=== PATIENT | female | born 1985 | race Caucasian/White ===

== ENCOUNTER 2016-10-20 20:06 | Emergency (ER) | payer OTHER ==
[2016-10-20 20:19] VITALS: BP 146/79
[2016-10-20] MEDS ORDERED: ULTRAM PO ONE (20:53)
--- NOTE | 2016-10-20 20:56 | PROVIDER DOCUMENTATION ---
HPI-Musculoskeletal Pain/Inj - GENERAL Chief Complaint: Extremity Injury Stated Complaint: TWISTED ANKLE Time Seen by Provider: 10/20/16 20:43 Source: patient - HX OF PRESENT ILLNESS-MUSKULOSKELTAL Nature of Presenting Problem: This pt presents today c complaints of L ankle pain after rolling her ankle on a rock earlier today. Reports lateral swelling and pain. No loss of motor function or sensation. Quality of Pain: reports: aching Severity in ED: moderate Onset/Duration: 4-6 hours ago Timing: still present Modifying Factors: improves with: movement, palpation Any recent injury?: Yes Similar Symptoms Previously?: No Recently seen or treated by another doctor?: No Review of Systems - Adult - REVIEW OF SYSTEMS - ADULT Constitutional: reports: no symptoms reported. denies: chills, fatique Eyes: reports: no symptoms reported. denies: discharge, dry eyes Ears, Nose, Mouth & Throat: reports: no symptoms reported. denies: ear discharge, ear pain Cardiovascular: reports: no symptoms reported. denies: chest pain, edema Respiratory: reports: no symptoms reported. denies: chronic cough, dyspnea on exertion Gastrointestinal: reports: no symptoms reported. denies: abdominal pain, hematemesis Genitourinary: reports: no symptoms reported. denies: dysuria, discharge Musculoskeletal: reports: joint pain, joint swelling. denies: bone pain, back pain Integumentary: reports: no symptoms reported. denies: hives, hair loss Neurological: reports: no symptoms reported. denies: ataxia, dizziness/vertigo Psychiatric: reports: no symptoms reported. denies: anxiety, anti-depressant use Endocrine: reports: no symptoms reported Hematologic/Lymphatic: reports: no symptoms reported Allergic/Immunologic: reports: no symptoms reported All Other Systems: Reviewed and Negative Past History - Adult - PAST MEDICAL HISTORY-ADULT Review of Records: reports: Old Records Reviewed, Nursing Assessment Review, Medications Reviewed, Social history reviewed & non-contributory. Major Childhood Illnesses: reports: denies history Cardiovascular: reports: denies history Respiratory: reports: denies history Gastrointestinal: reports: denies history Obstetrical/Gynecological: reports: denies history Genitourinary: reports: denies history Musculoskeletal: reports: denies history Neurological: reports: denies history Endocrine/Immune: reports: denies history Other Conditions: reports: denies history Physical Exam-Injury Related - Physical Exam-Injury Related Initial Vital Signs Reviewed: Yes General Appearance: appears well, alert, no apparent distress Eyes: PERRL/EOMI, pink conjunctivae Head, Ears, Nose, Mouth & Throat: normocephalic/atraumatic, moist mucous membranes, normal ENT inspection Neck: non-tender, full range of motion, supple, normal inspection Respiratory: chest non-tender, lungs clear, normal breath sounds, no pleuratic chest pain, no respiratory distress, no accessory muscle use Cardiovascular: normal peripheral pulses, regular rate, rhythm Peripheral Pulses: dorsalis-pedis (R): 2+, dorsalis-pedis (L): 2+ Abdominal Exam: normal bowel sounds, non tender, soft Back Exam: normal inspection, no CVA tenderness, no vertebral tenderness Extremity: normal range of motion, swelling, tenderness. negative: deformity, erythema, pulse deficit, pedal edema Integumentary: normal color, warm/dry, blanching Neurologic: grossly normal, no motor/sensory deficits. negative: facial droop, focal weakness, motor weakness, sensory deficit Progress - PLAN OF CARE/RESULTS Progress/Plan/Lab Results: Orders Category Date Time Status Santana Wrap Application DIRECTED Care 10/20/16 20:53 Active Crutches DIRECTED Care 10/20/16 20:53 Active ANKLE COMPLETE LEFT [RAD] Stat Exams 10/20/16 20:19 Ordered Tramadol [Ultram] Med 10/20/16 20:53 Discontinued 50 mg PO NOW ONE Vital Signs Temp Pulse Resp BP Pulse Ox 10/20/16 20:17 97.8 F 66 18 146/79 100 - XRAY 1 XRAY: Left XRAY Study: Ankle XRAY Interpretation: STS; no fx (myself and Dr. Perez) Departure - Departure Time of Disposition Order: 20:55 DIAGNOSIS: Left ankle sprain Qualifiers: Encounter type: initial encounter Involved ligament of ankle: unspecified ligament Qualified Code(s): S93.402A - Sprain of unspecified ligament of left ankle, initial encounter Disposition: HOME 01 Certified Medical Emergency: Urgent Condition: Good Additional Instructions: Take medication as prescribed. Rest, ice and elevate ankle. Follow up with an orthopedist as needed. ED Follow Up Instructions: You have been treated by a care provider in the Emergency Department. These instructions are being provided to you so you can have an understanding of how to care for yourself upon discharge. Upon discharge from the Emergency Department, you are responsible for making arrangements for follow-up care by a physician of your choice. Take all prescribed medications as directed. Return to the Emergency Department immediately for any new or worsening symptoms. You may call the Physician Referral phone number at [phone] to obtain a list of Physicians who are taking new patients. Prescriptions: Cyclobenzaprine [Flexeril] 10 mg PO TID #20 tablet Meloxicam [Mobic] 7.5 mg PO DAILY PRN PRN #15 tablet PRN Reason: Pain Referrals: None,PCP [Primary Care Provider] - Santy Avelar MD [STAFF PHYSICIAN] - Attestation - Physician/ ENEIDA Attestation Patient care was provided by Advanced Practice Provider:: Yes Advanced Practice Provider:: Vasyl Cerrato Advanced Practice Provider documentation review:: The Mid-level provider documentation, treatment plan and medical decision making was reviewed by the physician who agrees with all treatment and medical decision making by the P.
--- NOTE | 2016-10-21 06:37 | Diag Imaging Result Document ---
PROCEDURE NAME: ANKLE COMPLETE LEFT - 10/20/2016 LEFT ANKLE, 3 VIEWS: FINDINGS: There is lateral soft tissue swelling. No fracture. No dislocation. IMPRESSION: Although there is lateral soft tissue swelling, there is no acute bony injury.
== END 2016-10-20 21:18 | disposition home or self-care (01) ==
LOC: P.ED 20:06
DX: S93.402A Sprain of unspecified ligament of left ankle, initial encounter (principal); M25.572 Pain in left ankle and joints of left foot; M25.472 Effusion, left ankle; X58.XXXA Exposure to other specified factors, initial encounter
CPT/HCPCS: 99283